=== PATIENT | female | born 1990 | race Caucasian/White ===

== ENCOUNTER 2018-05-20 23:08 | Emergency (ER) | payer BC ==
[~2018-05-20] VITALS: Ht 157.5 cm; Wt 49.9 kg
[2018-05-20 23:12] VITALS: Ht 157.5 cm; Wt 49.9 kg
[2018-05-20] MEDS ORDERED: BUSPAR 15 MG TA15 MG (23:15)
[2018-05-20] MEDS ORDERED: KLONOPIN0.5 MG PO (23:16)
[2018-05-20 23:39] LABS: HEMATOCRIT 42.5 % (36.0-48.0); HEMOGLOBIN 14.6 g/dL (12-16); LYMPHOCYTES 31.7 % (15-50); MCH 30.6 pg (26.0-34.0); MCHC 34.4 g/dL (31.0-37.0); MCV 89.1 fL (80.0-100.0); MEAN PLATELET VOLUME 9.3 fL (7.4-10.4); NEUTROPHILS 60.5 % (40-80); PLATELET COUNT 256 10x3/uL (130-400); RBC 4.77 10x6/uL (4.00-5.40); RDW 13.1 % (11.5-14.5); WBC 8.1 10x3/uL (4.8-10.8)
[2018-05-20 23:39] LABS: APPEARANCE CLEAR (CLEAR); BILIRUBIN NEGATIVE (NEGATIVE); COLOR YELLOW (YELLOW); GLUCOSE NEGATIVE (NEGATIVE); KETONE NEGATIVE (NEGATIVE); NITRITE NEGATIVE (NEGATIVE); PROTEIN NEGATIVE (NEGATIVE); SPECIFIC GRAVITY 1.015 (1.005-1.020); UROBILINOGEN NORMAL (NORMAL)
[2018-05-20 23:49] LABS: HCG SERUM NEGATIVE (NEGATIVE)
[2018-05-20 23:51] LABS: UDS - AMPHET NEGATIVE QUAL (NEGATIVE); UDS - BARB NEGATIVE QUAL (NEGATIVE); UDS - BENZO NEGATIVE QUAL (NEGATIVE); UDS - COCAINE NEGATIVE QUAL (NEGATIVE); UDS - OPIATE NEGATIVE QUAL (NEGATIVE); UDS - PCP NEGATIVE QUAL (NEGATIVE); UDS - THC NEGATIVE QUAL (NEGATIVE)
[2018-05-20 23:51] LABS: ALBUMIN 4.1 g/dL (3.4-5.0); ALKALINE PHOSPHATASE 106 U/L (46-116); ALT (SGPT) 17 U/L (10-68); BILIRUBIN - TOTAL 0.21 mg/dL (0.2-1.3); CALC OSMOLALITY 272 mosm/kg (275-300); CALCIUM 8.9 mg/dL (8.5-10.1); CARBON DIOXIDE 30.4 mmol/L (21.0-32.0); CHLORIDE - SERUM 102 mmol/L (98-107); CREATININE - SERUM 0.8 mg/dL (0.6-1.3); GLUCOSE 95 mg/dL (74-106); POTASSIUM - SERUM 4.3 mmol/L (3.5-5.1); PROTEIN - SERUM 8.3 g/dL (6.4-8.2); SODIUM 136 mmol/L (136-145); UREA NITROGEN 15 mg/dL (7-18); eGFR NON AFRICAN AMERICAN > 90 mL/min (90-120)
[2018-05-21 02:04] VITALS: BP 122/74
== END 2018-05-21 02:05 ==
LOC: D.ER 23:08
PROVIDERS: Family Medicine
DX: R45.851 Suicidal ideations (principal); F32.9 Major depressive disorder, single episode, unspecified